=== PATIENT | female | born 1965 | race Caucasian/White ===

== ENCOUNTER 2018-08-17 08:46 | Day surgery (SDC) | payer OTHER ==
[2018-08-11 08:41] VITALS: BMI 35.7
[2018-08-17] MEDS ORDERED: LIDOCAINE HCL/PF 2% SDV 5ML VIAL ONE (09:44)
[2018-08-17] MEDS ORDERED: PROPOFOL 20 ML ONE ×2 (09:44)
[2018-08-17 10:18] VITALS: TEMP 97.6
[2018-08-17 11:01] VITALS: BP 107/66; PULSE 63
--- NOTE | 2018-08-20 15:49 | PATH ---
Surgical Pathology Report Patient Name: FLEX ARNOLD [facility]. Rec. #: [id number] /Age/Gender: 1965 (Age: 53) / F Account: [id number] Location: [facility] Taken: 08/17/2018 Received: 08/17/2018 Reported: 08/20/2018 Physicians: Jean Valderrama M.D. Specimen(s) Received CECAL ULCER BIOPSY Clinical History Screening, family history of polyps Postoperative diagnosis: Diverticulosis, cecal ulcer Final Diagnosis CECAL ULCER, BIOPSY: COLONIC MUCOSA SHOWING BENIGN/REACTIVE LYMPHOID AGGREGATE. Electronically Signed Sharon Aragon M.D. Gross Description Received in formalin, labeled "cecal ulcer biopsy" is a schwartz, irregular portion of soft tissue measuring 0.3 cm. in greatest dimension. The specimen is submitted in toto in one cassette. /08/18/201808/18/2018
== END 2018-08-17 10:55 | disposition home or self-care (01) ==
LOC: FASU-ENDO 08:46
PROVIDERS: ATTEND Internal Medicine Gastroenterology
PROC: 0DBH8ZX Excision of Cecum, Via Natural or Artificial Opening Endoscopic, Diagnostic (ICD-10-PCS; principal; 2018-08-17 09:53)
DX: Z12.11 Encounter for screening for malignant neoplasm of colon (principal); Z83.71 Family history of colonic polyps; K63.3 Ulcer of intestine; K57.30 Diverticulosis of large intestine without perforation or abscess without bleeding
CPT/HCPCS: 88305-TC